=== PATIENT | male | born 1965 | race Caucasian/White ===

== ENCOUNTER 2019-04-02 17:21 | Emergency (ER) | payer SELFPAY ==
[2019-04-02] MEDS ORDERED: Dexamethasone 4 MG TAB ONE (18:45)
[2019-04-02] MEDS ORDERED: Acetaminophen 500 MG TAB ONE (18:45)
[2019-04-02] MEDS ORDERED: Ketorolac Tromethamine 30 MG/ML VIAL ONE (18:45)
== END 2019-04-02 19:41 | disposition home or self-care (01) ==
LOC: ERS 17:21
DX: M54.42 Lumbago with sciatica, left side (principal); I10 Essential (primary) hypertension; F17.210 Nicotine dependence, cigarettes, uncomplicated; Z79.82 Long term (current) use of aspirin; Z79.899 Other long term (current) drug therapy
CPT/HCPCS: 96372; 99283; J1885; J8540